=== PATIENT | female | born 1995 | race Caucasian/White ===

== ENCOUNTER 2021-07-02 06:02 | Emergency (ER) | payer OTHER ==
[~2021-07-02] VITALS: Ht 157.5 cm; Wt 86.2 kg
[2021-07-02 06:13] VITALS: BP 131/72
[2021-07-02] MEDS ORDERED: IBUP-2070 PO (08:20)
[2021-07-02] MEDS ORDERED: VALA10002 PO (08:20)
[2021-07-02] MEDS ORDERED: ACET1TAB25 PO (08:20)
[2021-07-02] MEDS ORDERED: HYDROCODONE/ACETAMINOPHEN 5/325 MG TAB PO ONE (08:30)
[2021-07-02] MEDS ORDERED: VALACYCLOVIR HCL 500 MG TABLET PO SCH (08:30)
[2021-07-02] MEDS ORDERED: KETOROLAC 15MG/ML VIAL (15MG/ML) IM ONE (08:30)
== END 2021-07-02 08:41 | disposition home or self-care (01) ==
LOC: EDH 06:02
DX: B00.1 Herpesviral vesicular dermatitis (principal); R50.9 Fever, unspecified
CPT/HCPCS: 96372; 99283; J1885